=== PATIENT | female | born 1950 | race Caucasian/White ===

== ENCOUNTER → 2017-06-18 | Outpatient (CLI) | payer MEDICARE, OTHER ==
[~2017-06-18] MED LIST: ACYC200C66 PO; L-LY500T4 PO; LEVO75TA3 PO; LOSA100T PO; METR0.7537 TOPICAL; ROSU10 PO; VITA2000 PO
[2017-06-18 10:08] LABS: AUTOMATED NEUTROPHIL # 3.5 TH/MM3 (1.8-7.7); BASOPHIL % 0.5 % (0.0-2.0); EOSINOPHIL # 0.1 TH/MM3 (0-0.4); EOSINOPHIL % 1.4 % (0.0-4.0); HEMATOCRIT 39.1 % (35.0-46.0); HEMO FLAGS DIFF FINAL; LYMPH % 27.1 % (9.0-44.0); LYMPHOCYTE # 1.5 TH/MM3 (1.0-4.8); MEAN CELL VOLUME 83.7 FL (80.0-100.0); MEAN CORPUSCULAR HEMOGLOBIN 28.4 PG (27.0-34.0); MONO % 7.3 % (0.0-8.0); NEUT % 63.7 % (16.0-70.0); PLATELET COUNT 289 TH/MM3 (150-450); RED BLOOD COUNT 4.67 MIL/MM3 (4.00-5.30); WHITE BLOOD COUNT 5.5 TH/MM3 (4.0-11.0)
[2017-06-18 10:18] LABS: BLOOD, URINE NEG (NEG); COMMENT (UR) CULT NOT INDICATED; CULTURE IF INDICATED CULT NOT INDICATED; GLUCOSE,URINE NEG (NEG); KETONE, URINE NEG (NEG); NITRITE,URINE NEG (NEG); SQUAMOUS EPITHELIAL CELL URINE <1 /hpf (0-5); URINE COLOR STRAW (YELLW/STRAW)
[2017-06-18 10:20] LABS: APTT (PATIENT) 27.9 SEC (24.3-30.1); PROTHROMBIN TIME - PATIENT 10.8 SEC (9.8-11.6)
[2017-06-18 10:33] LABS: ANION GAP 7 MEQ/L (5-15); AST (GOT) 22 U/L (15-37); BICARBONATE 29.7 MEQ/L (21.0-32.0); BLOOD UREA NITROGEN 14 MG/DL (7-18); CHLORIDE 102 MEQ/L (98-107); GLOMERULAR FILTRATION RATE 63 ML/MIN (>89); GLUCOSE,FASTING 97 MG/DL (74-99); POTASSIUM 3.5 MEQ/L (3.5-5.1); SODIUM (NA) 139 MEQ/L (136-145)
[2017-06-18 10:34] LABS: WESTERGREN SEDIMENTATION RATE 16 mm/hr (0-30)
[2017-06-18 10:35] LABS: ALT (GPT) 34 U/L (10-53)
[2017-06-18 10:37] LABS: ALKALINE PHOSPHATASE 82 U/L (45-117); TOTAL BILIRUBIN ADULT 0.6 MG/DL (0.2-1.0)
--- NOTE | 2017-06-18 11:32 | EKG ---
Date Performed: 06/18/2017 Time Performed: 09:41:07 PTAGE: 66 years EKG: Sinus rhythm NORMAL ECG NO PREVIOUS TRACING DOCTOR: Prosper Gastelum Interpretating Date/Time 06/18/2017 11:32:28
--- NOTE | 2017-06-18 11:42 | RADRPT ---
EXAM DATE/TIME: 06/18/2017 11:34 [facility] COMPARISON: No previous studies available for comparison. INDICATIONS : Evaluate for pneumonia, pneumothorax, or communicable disease. Pre op for hip surgery on July. MEDICAL HISTORY : Hypertension. SURGICAL HISTORY : None. ENCOUNTER: Initial ACUITY: 1 day PAIN SCORE: 0/10 LOCATION: Bilateral chest FINDINGS: PA and lateral views of the chest demonstrate the lungs to be symmetrically aerated without evidence of mass, infiltrate or effusion. The cardiomediastinal contours are unremarkable. Mild degenerative changes thoracic spine.. CONCLUSION: No acute disease. Nathan Glasgow MD FACR on June 18, 2017 at 11:40 Board Certified Radiologist. This report was verified electronically.
== END ==
LOC: CPRE 09:13
PROVIDERS: ATTEND Orthopaedic Surgery
DX: Z01.812 Encounter for preprocedural laboratory examination (principal); Z01.810 Encounter for preprocedural cardiovascular examination; Z01.811 Encounter for preprocedural respiratory examination; M16.12 Unilateral primary osteoarthritis, left hip; M79.609 Pain in unspecified limb; M25.50 Pain in unspecified joint; Z96.60 Presence of unspecified orthopedic joint implant
CPT/HCPCS: 36415; 71020; 80053; 81001; 85025; 85610; 85652; 85730; 93005

== ENCOUNTER 2017-07-04 05:38 | Inpatient (IN) | payer MEDICARE, OTHER ==
[~2017-07-04] VITALS: Ht 160 cm; Wt 55.2 kg
[2017-07-04] MEDS ORDERED: POVIDONE IODINE 5% (ANTISEPSIS KIT) 4 APPLICATIONS EACH NARE PRN (06:15)
[2017-07-04] MEDS ORDERED: METOPROLOL TARTRATE 25 MG TAB PO PRN (06:15)
[2017-07-04] MEDS ORDERED: CHLORHEXIDINE GLUCONATE 2 % 1 PACK (2 CLOTHS) TOPICAL PRN (06:15)
[2017-07-04] MEDS ORDERED: LACTATED RINGER'S 1000 ML IV PRN (06:15)
[2017-07-04] MEDS ORDERED: POVIDONE IODINE 7.5% SCRUB 118 ML BOTTLE TOPICAL SCH (06:15)
[2017-07-04] MEDS ORDERED: SODIUM CHLORID 0.9% 500 ML IV PRN (06:15)
[2017-07-04] MEDS ORDERED: VANCOMYCIN 1000 MG/NS 250 ML (for <70 kg) IV SCH ×2 (06:15)
[2017-07-04] MEDS ORDERED: DEXAMETHASONE SOD PHOS 20 MG/5 ML VIAL ONE (06:58)
[2017-07-04] MEDS ORDERED: diphenhydrAMINE HCL 50 MG/ML VIAL ONE (06:58)
--- NOTE | 2017-07-04 07:06 | HHI.DCPOC ---
Discharge Care Plan Diagnosis: (1) Osteoarthritis of left hip (2) Status post total hip replacement, left Your Health Problems Are: Difficulty with ADL Goals to Promote Your Health * To prevent worsening of your condition and complications * To maintain your health at the optimal level Directions to Meet Your Goals Take your medications as prescribed Follow your dietary instruction Follow activity as directed Keep your appointments as scheduled Take your immunizations and boosters as scheduled If your symptoms worsen call your PCP, if no PCP go to Urgent Care Center or Emergency Room Smoking is Dangerous to Your Health. Avoid second hand smoke Call the 24-hour hour crisis hotline for domestic abuse at Rommel Celaya Jul 04, 2017 07:06
--- NOTE | 2017-07-04 07:07 | HHI.FF ---
Face to Face Verification Diagnosis: (1) Osteoarthritis of left hip (2) Status post total hip replacement, left Physical Therapy Gait training, Transfer training, bed to chair Hip: Total hip Left LE Weight Bearing: WB as tolerated Left LE Range of Motion: Active ROM Nursing Nursing: Jcarlos poon Dressing Changes: Do not change dressing Additional Instructions first dressing change in office I have seen patient Nisha Munson on 07/04/17. My clinical findings support the need for the requested home health care services because: Limited ability to care for self High risk of falls I certify that my clinical findings support that this patient is homebound because: Post-op weakness Unsteady gait/balance Rommel Celaya Jul 04, 2017 07:07
[2017-07-04] MEDS ORDERED: COMMODE 3-IN-11 MIS (07:08)
[2017-07-04] MEDS ORDERED: WALKER WHEELS/F1 MIS (07:08)
[2017-07-04] MEDS ORDERED: GENTAMICIN SULFATE 80 MG/2 ML VIAL ONE (07:18)
[2017-07-04] MEDS: ceFAZolin 2 GM PREMIX 50 ML IV SCH ×2 (07:30→08:20)
[2017-07-04] MEDS ORDERED: APREPITANT 40 MG CAP ONE (07:42)
[2017-07-04] MEDS ORDERED: FAMOTIDINE 20 MG/2 ML VIAL ONE (07:46)
[2017-07-04] MEDS: TRANEXAMIC ACID IV SCH ×2 (08:17→13:53)
[2017-07-04] MEDS: SODIUM CHLORIDE 0.9% IV SCH ×2 (08:17→13:53)
[2017-07-04] MEDS ORDERED: EXPAREL PERI-ARTICULAR INJECTION (TOTAL VOL. 60 ML) P-ARTICULR SCH ×2 (08:30)
--- NOTE | 2017-07-04 09:56 | PD.OP ---
cc: Wilberto Rodriguez MD Operative Report Date of Surgery: Jul 04, 2017 Preoperative Diagnosis: Left hip severe osteoarthritis Postoperative Diagnosis: Same Procedure: Left total hip arthroplasty Anesthesia: Gen. Surgeon: Wilberto Rodriguez Passenger Interline Clerk(s): KYREE Bueno The surgical procedure was assisted by my Advanced Registered Nurse Practitioner. My ROAD ADVISOR presence was necessary throughout this case for the manipulation and positioning of the surgical extremity. My ROAD ADVISOR was assisting me throughout the duration of this procedure. The skill set of an Advance Registered Nurse Practitioner was medically necessary to complete this procedure. During the surgical case, the surgical territory manager was working at the back table and the Advance Registered Nurse Practitioner was directly assisting me. Operation and Findings: IMPLANT DESCRIPTION: 1. [place] Gription Cup, acetabular size 48. 2. [place] AltrX polyethylene, neutral. 4. [place] femoral stem size 10, no collar, high offset. 5. Femoral head/neck metal, 32, +1. ESTIMATED BLOOD LOSS: 250 cc. JUSTIFICATION FOR PROCEDURE: The patient has end-stage osteoarthritis to the hip. There is an attached conservative measures pathway form in the chart that describes the nonoperative measures that were undertaken prior to consideration of surgical management. The patient understood the risks and benefits of surgical management. See my office notes for further details. PROCEDURE: The patient was brought back to the operative theatre. Adequate anesthesia was obtained. The patient received intravenous vancomycin and Ancef. The patient was carefully placed on the operative table. The lower extremity was prepped and draped in the usual sterile fashion. Fluoroscopic images were obtained. We made a standard anterior incision over the hip. We dissected through the TFL fascia, exposing the anterior capsule. Arthrotomy was performed in a T-shaped fashion. The capsule was tagged with a #2 FiberWire. End-stage arthritis was identified. Osteotomy was performed through the femoral neck exposing the acetabulum. Remnants of the labrum were resected and osteophytes were removed. We sequentially reamed the acetabulum. We trialed the hip and placed the final cup into position. This was done under fluoroscopic guidance to obtain the appropriate inclination and anteversion. A manhole cover was placed into the acetabular component. We then placed the final polyethylene into position and confirmed that it was well seated. Capsular attachments on the calcar and the inner aspect of the greater trochanter were resected. On the proximal aspect of the femur we used a rongeur , box osteotome, canal finder, sequential broaches and lateralizing rasp. We calcar planed the proximal femur. Then thoroughly irrigated the wound. We trialed the hip with the appropriate size stem. We placed the final stem in to position and trialed again. The hip was stable while it was externally rotated 70 degrees when the leg was lowered to the floor. The final head was applied, and final fluoroscopic images were obtained. The wound was thoroughly irrigated again. Interarticular injection of liposomal bupivacaine was given. The capsule was closed with #2 FiberWire and #1 Vicryl. The deep fascia was closed with a #2 Stratafix, followed by 2-0 Vicryl in the skin and Dermabond dressing. Postop plan is to weight-bear as tolerated. DVT prophylaxis will be performed with Polina, MAXINE lutz, early mobilization, and Lovenox followed by aspirin. Wilberto Rodriguez MD Jul 04, 2017 09:56
[2017-07-04] MEDS ORDERED: NORC5TAB PO (09:57)
[2017-07-04] MEDS ORDERED: ASPI-146 PO (09:57)
[2017-07-04] MEDS ORDERED: ENOX40IN SQ (09:57)
[2017-07-04] MEDS ORDERED: SODIUM CHLORIDE 0.9% FLUSH 5 ML FLUSH IVF PRN (10:00)
[2017-07-04] MEDS ORDERED: ACETAMINOPHEN/HYDROcodone 325 MG/5 MG TAB PO PRN (10:00)
[2017-07-04] MEDS ORDERED: ALUMINUM/MAGNESIUM/SIMETH 30 ML CUP PO PRN (10:00)
[2017-07-04] MEDS ORDERED: ZOLPIDEM TARTRATE 5 MG TAB PO PRN (10:00)
[2017-07-04] MEDS ORDERED: Post-op Orders (for Pharmacy) MISC XX ONE (10:00)
[2017-07-04] MEDS ORDERED: ONDANSETRON HCL 4 MG/2 ML VIAL IVP PRN (10:00)
[2017-07-04] MEDS ORDERED: MAGNESIUM HYDROXIDE SUSP 30 ML CUP PO PRN (10:00)
[2017-07-04] MEDS ORDERED: PATIENT OWN MEDICATION TOPICAL PRN (10:00)
[2017-07-04] MEDS ORDERED: NALOXONE HCL 0.4 MG/ML AMP IV PUSH PRN (10:00)
[2017-07-04] MEDS ORDERED: diphenhydrAMINE HCL 50 MG/ML VIAL IV PUSH PRN (10:00)
[2017-07-04] MEDS ORDERED: BISACODYL 10 MG SUPP RECTAL PRN (10:00)
[2017-07-04] MEDS ORDERED: MORPHINE SULFATE 4 MG/ML INJ IV PUSH PRN (10:00)
--- NOTE | 2017-07-04 10:07 | RADRPT ---
EXAM DATE/TIME: 07/04/2017 08:37 [facility] COMPARISON: No previous studies available for comparison. INDICATIONS : Left anterior hip replacement done in operating room. MEDICAL HISTORY : None. SURGICAL HISTORY : None. ENCOUNTER: Initial ACUITY: 1 day PAIN SCORE: Non-responsive. LOCATION: Left hip. FINDINGS: A two view examination of the left hip was performed. Left total hip arthroplasty in good position. CONCLUSION: Left total hip arthroplasty in good position. Kana Jean Baptiste MD on July 04, 2017 at 10:05 Board Certified Radiologist. This report was verified electronically.
[2017-07-04] MEDS ORDERED: *MEPERIDINE 25 MG INJ VIAL PERIprocedural Use ONLY ONE (10:44)
[2017-07-04] MEDS: SODIUM CHLOR 0.9% 1000 ML INJ 1,000 ML IV SCH ×2 (11:00→20:55)
--- NOTE | 2017-07-04 11:22 | RADRPT ---
EXAM DATE/TIME: 07/04/2017 10:54 [facility] COMPARISON: No previous studies available for comparison. INDICATIONS : Post op left hip surgery. MEDICAL HISTORY : Unobtainable. SURGICAL HISTORY : Unobtainable. ENCOUNTER: Initial ACUITY: 1 day PAIN SCORE: Non-responsive. LOCATION: Left hip. FINDINGS: Examination of the left hip was performed with AP Pelvis. The patient had a total hip arthroplasty in good position CONCLUSION: Total hip arthroplasty in good position. Kana Jean Baptiste MD on July 04, 2017 at 11:20 Board Certified Radiologist. This report was verified electronically.
[2017-07-04] MEDS ORDERED: PHENYLEPH/NS 1000 MCG/10 ML SYR IV ONE ×2 (12:00)
[2017-07-04] MEDS ORDERED: LIDOCAINE HCL 1% PF 5 ML SYRINGE OTHER ONE ×2 (12:00)
[2017-07-04] MEDS ORDERED: ROCURONIUM INJ 50 MG/5 ML SYRINGE IV PUSH ONE ×2 (12:00)
[2017-07-04] MEDS ORDERED: LACTATED RINGER'S 1000 ML INJ 1,000 ML IV ONE (12:00)
[2017-07-04] MEDS ORDERED: MIDAZOLAM HCL 2 MG/2 ML VIAL IV ONE ×2 (12:00)
[2017-07-04] MEDS ORDERED: TRANEXAMIC ACID IV SCH (12:00)
[2017-07-04] MEDS ORDERED: ESMOLOL HCL 100 MG/10 ML VIAL IV ONE (12:00)
[2017-07-04] MEDS ORDERED: NEOSTIGMINE 3 MG/3 ML SYR IV ONE ×2 (12:00)
[2017-07-04] MEDS ORDERED: hydrALAZINE HCL 20 MG/ML VIAL IV ONE (12:00)
[2017-07-04] MEDS ORDERED: ePHEDrine/NS 25 MG/5 ML SYR IV ONE ×2 (12:00)
[2017-07-04] MEDS ORDERED: PHENYLEPHRINE HCL 10 MG/ML VIAL IV ONE (12:00)
[2017-07-04] MEDS ORDERED: SODIUM CHLORIDE 0.9% IV SCH (12:00)
[2017-07-04] MEDS ORDERED: GLYCOPYRROLATE 1 MG/5 ML SYRINGE IV PUSH ONE (12:00)
[2017-07-04] MEDS ORDERED: SODIUM CHLORIDE 0.9% 20 ML VIAL IV ONE (12:00)
[2017-07-04] MEDS ORDERED: MORPHINE SULFATE 4 MG/ML INJ IV ONE (12:00)
[2017-07-04] MEDS ORDERED: ONDANSETRON HCL 4 MG/2 ML VIAL IV ONE ×2 (12:00)
[2017-07-04] MEDS ORDERED: PROPOFOL 200 MG/20 ML AMP IV ONE ×2 (12:00)
[2017-07-04] MEDS ORDERED: DEXAMETHASONE SOD PHOS 20 MG/5 ML VIAL IV PRN (13:15)
[2017-07-04] MEDS ORDERED: diphenhydrAMINE HCL 50 MG/ML VIAL IV ONE (13:15)
[2017-07-04] MEDS ORDERED: DO NOT ADM ANY ANTICOAGULANT DRUGS PRN (13:15)
--- NOTE | 2017-07-04 15:04 | PD.CONS ---
[facility] Request[facility] By Dr. Rodriguez Reason for Consult Medical management Primary Care Physician No Primary Care Physician Diagnoses: (1) Hypertension (2) Hyperlipidemia (3) Osteoarthritis of left hip (4) Status post total hip replacement, left History of Present Illness 66-year-old female with a medical history significant for hypertension, hyperlipidemia, hypothyroidism and osteoarthritis admitted to the hospital for left hip arthroplasty. Patient reports ongoing issues with left hip pain secondary to osteoarthritis for years. It has gotten to the point where she was having difficulty walking. Therefore she was admitted to the hospital for left hip arthroplasty. She reports her blood pressure has been well controlled on her current medications. She is seen postoperatively. She reports her pain is controlled. No other issues. Review of Systems Constitutional: DENIES: Fever, Chills Musculoskeletal: COMPLAINS OF: Joint pain Except as stated in HPI: all other systems reviewed are Neg Past Family Social History Allergies: Coded Allergies: prednisone (Verified Allergy, Severe, RASH, 06/18/17) Past Medical History Hypertension Hyperlipidemia Osteoarthritis Hypothyroidism Past Surgical History Hysterectomy Left hip arthroplasty Reported Medications Reported Meds & Active Scripts Active Enoxaparin Inj (Enoxaparin Sodium) 40 Mg/0.4 Ml Syr 40 Mg SQ DAILY Start Aspirin after Lovenox is completed. Ecotrin Regular Strength (Aspirin) 325 Mg Tabdr 325 Mg PO DAILY Start Aspirin after Lovenox is completed. [place] (Hydrocodone-Acetaminophen) 5 Mg-325 Mg Tab 1-2 Tab PO Q4H PRN Walker with Front Wheels (Device) 1 Mis Mis Ea .ROUTE DIRECTED Commode 3-in-1 (Device) 1 Mis Mis Ea .ROUTE DIRECTED Reported Vitamin D3 (Cholecalciferol) 2,000 Unit Cap 2,000 Units PO DAILY l-Lysine (Lysine) 500 Mg Tab 1 Tab PO DAILY Metronidazole Topical 0.75 % Gel 1 Applic TOPICAL BID PRN Acyclovir 200 Mg Cap 200 Mg PO 5 TIMES A DAY PRN Losartan (Losartan Potassium) 100 Mg Tab 100 Mg PO DAILY Levothyroxine (Levothyroxine Sodium) 75 Mcg Tab 75 Mcg PO DAILY Crestor (Rosuvastatin Calcium) 10 Mg Tab 10 Mg PO DAILY Family History Reviewed and is noncontributory. Social History Patient does not use tobacco or alcohol Physical Exam Vital Signs Vital Signs Date Time Temp Pulse Resp B/P (MAP) Pulse Ox O2 Delivery O2 Flow Rate FiO2 07/04/17 11:15 77 20 98/52 (67) 98 Nasal Cannula 2 07/04/17 11:00 74 20 98/55 (69) 98 Nasal Cannula 2 07/04/17 10:45 76 20 107/55 (72) 98 Nasal Cannula 2 07/04/17 10:30 86 20 107/58 (74) 98 Nasal Cannula 2 07/04/17 10:12 97.8 87 20 113/55 (74) 99 Nasal Cannula 2 07/04/17 06:30 98.0 68 20 168/76 (106) 97 Physical Exam GENERAL: This is a well-nourished, well-developed patient, in no apparent distress. SKIN: No rashes, ecchymoses or lesions. Cool and dry. HEAD: Atraumatic. Normocephalic. No temporal or scalp tenderness. EYES: Pupils equal round and reactive. Extraocular motions intact. No scleral icterus. No injection or drainage. ENT: Nose without bleeding, purulent drainage or septal hematoma. Throat without erythema, tonsillar hypertrophy or exudate. Uvula midline. Airway patent. NECK: Trachea midline. No JVD or lymphadenopathy. Supple, nontender, no meningeal signs. CARDIOVASCULAR: Regular rate and rhythm without murmurs, gallops, or rubs. RESPIRATORY: Clear to auscultation. Breath sounds equal bilaterally. No wheezes , rales, or rhonchi. GASTROINTESTINAL: Abdomen soft, non-tender, nondistended. No hepato-splenomegaly , or palpable masses. No guarding. MUSCULOSKELETAL: Left hip postop dressing is intact. Neurovascularly intact distally. NEUROLOGICAL: Awake and alert. Cranial nerves II through XII intact. Motor and sensory grossly within normal limits. Five out of 5 muscle strength in all muscle groups. Normal speech. Imaging Last Impressions Hip and Pelvis X-Ray 07/04/17 0951 Signed Impressions: Service Date/Time: Tuesday, July 04, 2017 10:54 - CONCLUSION: Total hip arthroplasty in good position. Kana Jean Baptiste MD Hip X-Ray 07/04/17 0000 Signed Impressions: Service Date/Time: Tuesday, July 04, 2017 08:37 - CONCLUSION: Left total hip arthroplasty in good position. Kana Jean Baptiste MD Assessment and Plan Problem List: (1) Osteoarthritis of left hip ICD Code: M16.12 - Unilateral primary osteoarthritis, left hip (2) Status post total hip replacement, left ICD Code: Z96.642 - Presence of left artificial hip joint Plan: Continue routine postoperative care per orthopedic surgery. Pain control PT (3) Hypertension ICD Code: I10 - Essential (primary) hypertension Plan: Controlled. Continue home dose antihypertensives. (4) Hyperlipidemia ICD Code: E78.5 - Hyperlipidemia, unspecified Plan: Continue statin Problem Qualifiers (1) Osteoarthritis of left hip: Qualified Codes: M16.12 - Unilateral primary osteoarthritis, left hip Sourav Robbins MD Jul 04, 2017 15:04
[2017-07-04 15:54] VITALS: BP 120/63; PULSE 84; RESP 19; TEMP 95.5; O2SAT 95
--- NOTE | 2017-07-04 17:11 | PD.ORT.PN ---
Objective Vitals Vital Signs Date Time Temp Pulse Resp B/P (MAP) Pulse Ox O2 Delivery O2 Flow Rate FiO2 07/04/17 15:54 95.5 84 19 120/63 (82) 95 07/04/17 11:15 77 20 98/52 (67) 98 Nasal Cannula 2 07/04/17 11:00 74 20 98/55 (69) 98 Nasal Cannula 2 07/04/17 10:45 76 20 107/55 (72) 98 Nasal Cannula 2 07/04/17 10:30 86 20 107/58 (74) 98 Nasal Cannula 2 07/04/17 10:12 97.8 87 20 113/55 (74) 99 Nasal Cannula 2 07/04/17 06:30 98.0 68 20 168/76 (106) 97 I/O 07/03/17 07/03/17 07/03/17 07/04/17 07/04/17 07/04/17 07:00 15:00 23:00 07:00 15:00 23:00 Intake Total 1200 ml Output Total 3300 ml Balance -2100 ml Intake IV Total 1200 ml Output Estimated Blood Loss 300 ml Other 3000 ml Imaging Last 24 hours Impressions Hip and Pelvis X-Ray 07/04/17 0951 Signed Impressions: Service Date/Time: Tuesday, July 04, 2017 10:54 - CONCLUSION: Total hip arthroplasty in good position. Kana Jean Baptiste MD Hip X-Ray 07/04/17 0000 Signed Impressions: Service Date/Time: Tuesday, July 04, 2017 08:37 - CONCLUSION: Left total hip arthroplasty in good position. Kana Jean Baptiste MD Assessment & Plan Assessment and Plan POD #0: Left PRABHAKAR 1. WBAT LLE 2. Lovenox followed by ASA for DVT prophylaxis 3. Ice to the left hip PRN 4. No dressing changes. First dressing change will be in the office. 5. Plan is for discharge home with home health on 6. Patient will f/u with Dr. Rodriguez or KYREE Rosas as previously scheduled. Rommel Celaya Jul 04, 2017 17:11
[2017-07-04] MEDS ORDERED: ACYCLOVIR 200 MG CAP PO PRN (18:00)
[2017-07-04 19:00] VITALS: BP 117/56; PULSE 87; RESP 17; TEMP 97.4; O2SAT 98
[2017-07-04] MEDS: SODIUM CHLORIDE 0.9% FLUSH 5 ML FLUSH IVF SCH (21:00)
[2017-07-04] MEDS ORDERED: ATORVASTATIN 20 MG TAB PO SCH (21:00)
[2017-07-05 00:02] VITALS: BP 103/51; PULSE 84; RESP 18; TEMP 98.4; O2SAT 96
[2017-07-05] MEDS: ACETAMINOPHEN/HYDROcodone 325 MG/5 MG TAB PO PRN ×2 (02:50→08:51)
[2017-07-05 04:13] VITALS: BP 106/53; PULSE 89; RESP 17; TEMP 98; O2SAT 95
[2017-07-05] MEDS: SODIUM CHLOR 0.9% 1000 ML INJ 1,000 ML IV SCH (05:51)
[2017-07-05] MEDS ORDERED: LEVOTHYROXINE SODIUM 75 MCG TAB PO SCH (06:00)
[2017-07-05 06:13] LABS: HEMATOCRIT 25.5 % (35.0-46.0); MEAN CELL VOLUME 84.7 FL (80.0-100.0); MEAN CORPUSCULAR HEMOGLOBIN 29.2 PG (27.0-34.0); MEAN CORPUSCULAR HGB CONC 34.5 % (32.0-36.0); PLATELET COUNT 185 TH/MM3 (150-450); RED BLOOD COUNT 3.02 MIL/MM3 (4.00-5.30); RED CELL DISTRIBUTION WIDTH 13.3 % (11.6-17.2); REVIEW FLAG FINAL; WHITE BLOOD COUNT 10.7 TH/MM3 (4.0-11.0)
[2017-07-05] MEDS ORDERED: DEXAMETHASONE SOD PHOS 20 MG/5 ML VIAL IV ONE (07:45)
[2017-07-05 08:00] VITALS: BP 99/50; PULSE 89; RESP 17; TEMP 99; O2SAT 96
[2017-07-05] MEDS: SODIUM CHLORIDE 0.9% FLUSH 5 ML FLUSH IVF SCH (08:49)
[2017-07-05] MEDS ORDERED: ENOXAPARIN SODIUM 40 MG/0.4 ML SYRINGE SQ SCH (09:00)
[2017-07-05] MEDS ORDERED: LOSARTAN 50 MG TAB PO SCH (09:00)
[2017-07-05 09:40] VITALS: O2SAT 93
--- NOTE | 2017-07-05 09:42 | HHI.PR ---
Subjective Remarks Patient reports she is feeling great. Anxious to go home. Objective Vitals Vital Signs Date Time Temp Pulse Resp B/P (MAP) Pulse Ox O2 Delivery O2 Flow Rate FiO2 07/05/17 04:13 98.0 89 17 106/53 (70) 95 07/05/17 00:02 98.4 84 18 103/51 (68) 96 07/04/17 19:00 97.4 87 17 117/56 (76) 98 07/04/17 15:54 95.5 84 19 120/63 (82) 95 07/04/17 11:15 77 20 98/52 (67) 98 Nasal Cannula 2 07/04/17 11:00 74 20 98/55 (69) 98 Nasal Cannula 2 07/04/17 10:45 76 20 107/55 (72) 98 Nasal Cannula 2 07/04/17 10:30 86 20 107/58 (74) 98 Nasal Cannula 2 07/04/17 10:12 97.8 87 20 113/55 (74) 99 Nasal Cannula 2 I/O 07/04/17 07/04/17 07/04/17 07/05/17 07/05/17 07/05/17 07:00 15:00 23:00 07:00 15:00 23:00 Intake Total 1200 ml 460 ml 360 ml Output Total 3300 ml Balance -2100 ml 460 ml 360 ml Intake Oral 360 ml 360 ml IV Total 1200 ml 100 ml Output Estimated Blood Loss 300 ml Other 3000 ml # Voids 1 2 # Bowel Movements 0 0 Result Diagram: 07/05/17 0535 Objective Remarks GENERAL: This is a well-nourished, well-developed patient, in no apparent distress. CARDIOVASCULAR: Normal rate and regular rhythm without murmurs, gallops, or rubs. RESPIRATORY: Good respiratory efforts. Breath sounds equal and clear to auscultation bilaterally. GASTROINTESTINAL: Abdomen soft, non-tender, non-distended. Normal active bowel sounds MUSCULOSKELETAL: Left hip postop dressing is intact. Neurovascularly intact distally. NEURO: Alert & Oriented x4 to person, place, time, situation. Moves all ext x4 PSYCH: Appropriate mood and affect. A/P Problem List: (1) Osteoarthritis of left hip ICD Code: M16.12 - Unilateral primary osteoarthritis, left hip (2) Status post total hip replacement, left ICD Code: Z96.642 - Presence of left artificial hip joint Plan: Continue routine postoperative care per orthopedic surgery. Pain control PT Plan for discharge home today with home health (3) Hypertension ICD Code: I10 - Essential (primary) hypertension Plan: Controlled. Continue home dose antihypertensives. (4) Hyperlipidemia ICD Code: E78.5 - Hyperlipidemia, unspecified Plan: Continue statin Discharge Planning Cleared for discharge home today with home health. Problem Qualifiers (1) Osteoarthritis of left hip: Qualified Codes: M16.12 - Unilateral primary osteoarthritis, left hip Sourav Robbins MD Jul 05, 2017 09:42
--- NOTE | 2017-07-05 10:00 | PD.ORT.PN ---
Subjective Subjective Remarks no CP/SOB. no issues. Participating in PT Objective Vitals Vital Signs Date Time Temp Pulse Resp B/P (MAP) Pulse Ox O2 Delivery O2 Flow Rate FiO2 07/05/17 04:13 98.0 89 17 106/53 (70) 95 07/05/17 00:02 98.4 84 18 103/51 (68) 96 07/04/17 19:00 97.4 87 17 117/56 (76) 98 07/04/17 15:54 95.5 84 19 120/63 (82) 95 07/04/17 11:15 77 20 98/52 (67) 98 Nasal Cannula 2 07/04/17 11:00 74 20 98/55 (69) 98 Nasal Cannula 2 07/04/17 10:45 76 20 107/55 (72) 98 Nasal Cannula 2 07/04/17 10:30 86 20 107/58 (74) 98 Nasal Cannula 2 07/04/17 10:12 97.8 87 20 113/55 (74) 99 Nasal Cannula 2 I/O 07/04/17 07/04/17 07/04/17 07/05/17 07/05/17 07/05/17 07:00 15:00 23:00 07:00 15:00 23:00 Intake Total 1200 ml 460 ml 360 ml Output Total 3300 ml Balance -2100 ml 460 ml 360 ml Intake Oral 360 ml 360 ml IV Total 1200 ml 100 ml Output Estimated Blood Loss 300 ml Other 3000 ml # Voids 1 2 # Bowel Movements 0 0 Result Diagram: 07/05/17 0535 Imaging Last 24 hours Impressions Hip and Pelvis X-Ray 07/04/17 0951 Signed Impressions: Service Date/Time: Tuesday, July 04, 2017 10:54 - CONCLUSION: Total hip arthroplasty in good position. Kana Jean Baptiste MD Hip X-Ray 07/04/17 0000 Signed Impressions: Service Date/Time: Tuesday, July 04, 2017 08:37 - CONCLUSION: Left total hip arthroplasty in good position. Kana Jean Baptiste MD Objective Remarks aaox3. nad LLE: dressing CDI, grossly nvi. SILT distally. neg homans Assessment & Plan Assessment and Plan POD #1: Left PRABHAKAR 1. WBAT LLE 2. Lovenox followed by ASA for DVT prophylaxis 3. Ice to the left hip PRN 4. No dressing changes. First dressing change will be in the office. 5. Plan is for discharge home with home health on today 6. Patient will f/u with Dr. Rodriguez or KYREE Rosas as previously scheduled. Luis Callahan Jr., MD Jul 05, 2017 10:00
[2017-07-05] MEDS ORDERED: DOCUSATE SODIUM 100 MG CAP PO SCH (21:00)
[2017-07-05] MEDS ORDERED: MULTIVITAMINS/MINERALS THERAPEUTIC TAB PO SCH (21:00)
--- NOTE | 2017-07-08 15:16 | HHI.DS ---
Discharge Summary Admission Date Jul 04, 2017 at 05:38 Discharge Date: Jul 05, 2017 Admitting Diagnosis OA left hip Status post total hip replacement, left Diagnosis: (1) Osteoarthritis of left hip Diagnosis: Principal ICD Codes: M16.12 - Unilateral primary osteoarthritis, left hip (2) Status post total hip replacement, left Diagnosis: Principal ICD Codes: Z96.642 - Presence of left artificial hip joint Brief History This is a 66 year old female patient with severe OA of the left hip CBC/BMP: 07/05/17 0535 PE at Discharge aaox3. nad LLE: dressing CDI, grossly nvi. SILT distally. [facility] Hospital Course The patient was admitted to the hospital for severe OA of the left hip to have a left PRABHAKAR. The patient's surgery went well without complication. The patient is WBAT on the left LE. The patient was placed on Lovenox followed by ASA for DVT prophylaxis. The patient is on a regular diet. The patient was discharged home with home health and will f/u in the office with Dr. Rodriguez or KYREE Rosas as previously scheduled. Pt Condition on Discharge: Stable Discharge Disposition: Disch w/ Home Health Serv Discharge Instructions Diet Instructions: As Tolerated, No Restrictions Activities You Can Perform: Weight Bearing as Aviva Activities to Avoid: Strenuous Activity Follow up Referrals: Orthopedics with Wilberto Rodriguez MD New Medications: Aspirin DR (Ecotrin Regular Strength) 325 Mg Tabdr 325 MG PO DAILY for Prevent Blood Clot, #30 TAB 0 Refills Start Aspirin after Lovenox is completed. Commode 3-in-1 (Commode 3-in-1) 1 Mis Mis EA .ROUTE DIRECTED, #1 0 Refills Enoxaparin Inj (Enoxaparin Inj) 40 Mg/0.4 Ml Syr 40 MG SQ DAILY for Blood Clot Prevention, #10 SYRINGE 0 Refills Start Aspirin after Lovenox is completed. Hydrocodone-Acetaminophen ([place]) 5 Mg-325 Mg Tab 1-2 TAB PO Q4H PRN for PAIN, #60 TAB 0 Refills Walker with Front Wheels (Walker with Front Wheels) 1 Mis Mis EA .ROUTE DIRECTED, #1 0 Refills Continued Medications: Acyclovir (Acyclovir) 200 Mg Cap 200 MG PO 5 TIMES A DAY PRN for COLD SORES, CAP 0 Refills Cholecalciferol (Vitamin D3) 2,000 Unit Cap 2000 UNITS PO DAILY for Nutritional Supplement, #1 BOTTLE 0 Refills Levothyroxine (Levothyroxine) 75 Mcg Tab 75 MCG PO DAILY for Thyroid, #30 TAB 0 Refills Losartan (Losartan) 100 Mg Tab 100 MG PO DAILY for Blood Pressure Management, #30 TAB 0 Refills Lysine (l-Lysine) 500 Mg Tab 1 TAB PO DAILY Metronidazole Topical (Metronidazole Topical) 0.75 % Gel 1 APPLIC TOPICAL BID PRN for RASH, #1 TUBE 0 Refills Rosuvastatin (Crestor) 10 Mg Tab 10 MG PO DAILY for Cholesterol Management, #30 TAB 0 Refills Rommel Celaya Jul 08, 2017 15:16
== END 2017-07-05 10:58 | disposition home health service (06) | DRG 470 ==
LOC: HSDI 05:38 → EDUNIT# 08:30 → N06B 13:16
PROVIDERS: ADMIT Orthopaedic Surgery; ATTEND Orthopaedic Surgery
PROC: 0SRB02Z Replacement of Left Hip Joint with Metal on Polyethylene Synthetic Substitute, Open Approach (ICD-10-PCS; principal; 2017-07-04 07:55)
DX: M16.12 Unilateral primary osteoarthritis, left hip (principal); I10 Essential (primary) hypertension; M25.752 Osteophyte, left hip; E78.5 Hyperlipidemia, unspecified; E03.9 Hypothyroidism, unspecified
CPT/HCPCS: 73502; 76000; 85027; 86850; 86900; 86901; 94150; C1776; C9290; J0360; J0690; J1100; J1200; J1580; J1650; J2175; J2250; J2270; J2370; J2405; J2710; J3010; J3370; J7030; J7050; J7120; J8501

== ENCOUNTER 2017-07-08 16:51 | Emergency (ER) | payer MEDICARE, OTHER ==
[~2017-07-08] VITALS: Ht 160 cm; Wt 55.0 kg
[~2017-07-08 16:51] MED LIST changes: +ASPI-146 PO; +COMMODE 3-IN-11 MIS; +ENOX40IN SQ; +NORC5TAB PO; +WALKER WHEELS/F1 MIS
[2017-07-08 16:53] VITALS: BP 206/98; PULSE 106; RESP 18; TEMP 98.6; O2SAT 100
[2017-07-08 17:28] VITALS: BP 189/87; PULSE 90; RESP 18; TEMP 98.4; O2SAT 100
[2017-07-08] MEDS ORDERED: SODIUM CHLORIDE 0.9% FLUSH 10 ML FLUSH IVF PRN (17:30)
[2017-07-08] MEDS ORDERED: PROCHLORPERAZINE INJ 10 MG/2 ML VIAL IVP ONE (17:30)
[2017-07-08] MEDS ORDERED: diphenhydrAMINE HCL 50 MG/ML VIAL IVP ONE (17:30)
--- NOTE | 2017-07-08 17:38 | PD ---
HPI . Headache Chief Complaint: Headache Time Seen by Provider: 17:18 Travel History International Travel<30 days: No Contact w/Intl Traveler<30days: No Traveled to known affect area: No History of Present Illness HPI This patient presents with chief complaint of a headache. Onset was 4 days ago. She states that she underwent left total hip replacement 4 days ago. She awakened in the recovery room with a headache. She states that her headache has been getting progressively worse. It is located on the vertex of her head and is throbbing in nature. Pain is rated 10/10. She has not noted any exacerbating factor. It has been unrelieved by Tylenol and Advil. It is associated with nausea but no blurred vision, no photophobia and no fever. She is on prophylactic Lovenox. PFSH Past Medical History Hx Anticoagulant Therapy: Yes Cancer: No Cardiovascular Problems: Yes Diabetes: No Endocrine: Yes Genitourinary: No Hepatitis: No Hiatal Hernia: No Immune Disorder: No Musculoskeletal: Yes (OA) Neurologic: No Psychiatric: No Reproductive: No Respiratory: No Thyroid Disease: Yes ?: Not Past Surgical History Abdominal Surgery: No AICD: No Body Medical Devices: TOOTH IMPLANT Cardiac Surgery: No Ear Surgery: No Endocrine Surgery: No Eye Surgery: No Genitourinary Surgery: No Gynecologic Surgery: Yes (HYSTERECTOMY) Hysterectomy: Yes Joint Replacement: No Oral Surgery: No Pacemaker: No Thoracic Surgery: No Social History Tobacco Use: No Substance Use: No Allergies-Medications (Allergen,Severity, Reaction): Coded Allergies: prednisone (Verified Allergy, Severe, RASH, 07/08/17) Reported Meds & Prescriptions Reported Meds & Active Scripts Active Enoxaparin Inj (Enoxaparin Sodium) 40 Mg/0.4 Ml Syr 40 Mg SQ DAILY Start Aspirin after Lovenox is completed. Ecotrin Regular Strength (Aspirin) 325 Mg Tabdr 325 Mg PO DAILY Start Aspirin after Lovenox is completed. Dalton (Hydrocodone-Acetaminophen) 5 Mg-325 Mg Tab 1-2 Tab PO Q4H PRN Reported Vitamin D3 (Cholecalciferol) 2,000 Unit Cap 2,000 Units PO DAILY l-Lysine (Lysine) 500 Mg Tab 500 Mg PO DAILY Acyclovir 200 Mg Cap 200 Mg PO 5 TIMES A DAY PRN Losartan (Losartan Potassium) 100 Mg Tab 100 Mg PO DAILY Levothyroxine (Levothyroxine Sodium) 75 Mcg Tab 75 Mcg PO DAILY Crestor (Rosuvastatin Calcium) 10 Mg Tab 10 Mg PO DAILY Review of Systems Except as stated in HPI: all other systems reviewed are Neg General / Constitutional: No: Fever, Chills Eyes: No: Blurred Vision, Photophobia HENT: Positive: Headaches Gastrointestinal: Positive: Nausea, No: Vomiting, Diarrhea Musculoskeletal: Positive: Edema (left lower extremity swelling) Neurologic: Positive: Headache, No: Weakness, Dizziness, Syncope, Focal Abnormalities, Change in Mentation, Slurred Speech, Paresthesia, Seizures Physical Exam Narrative GENERAL: Patient looks like she is hurting but she doesn't really look like she is in acute distress. SKIN: warm/dry. HEAD: Normocephalic. Atraumatic. No scalp tenderness. EYES: Pupils equal and round. No scleral icterus. No injection or drainage. Extraocular movements are intact. ENT: No nasal bleeding or discharge. Mucous membranes pink and moist. NECK: Trachea midline. Full range of motion without pain.. Supple. CARDIOVASCULAR: Regular rate and rhythm. RESPIRATORY: No accessory muscle use. Clear to auscultation. Breath sounds equal bilaterally. GASTROINTESTINAL: Abdomen soft. Nontender. Bowel sounds present. Nondistended. : MUSCULOSKELETAL: Status post recent left total hip replacement. She has some dependent edema in her left lower extremity. No significant tenderness in her leg. NEUROLOGICAL: Awake and alert. No obvious cranial nerve deficits. Motor grossly within normal limits. Normal speech. PSYCHIATRIC: Appropriate mood and affect; insight and judgment normal. Data Data Last Documented VS Vital Signs Date Time Temp Pulse Resp B/P (MAP) Pulse Ox O2 Delivery O2 Flow Rate FiO2 07/08/17 17:28 100 Room Air 07/08/17 17:28 98.4 90 18 189/87 (121) Orders Orders Complete Blood Count With Diff (07/08/17 17:25) Basic Metabolic Panel (Bmp) (07/08/17 17:25) Ct Brain W/O Iv Contrast(Rout) (07/08/17 17:25) Iv Access Insert/Monitor (07/08/17 17:25) Sodium Chloride 0.9% Flush (Ns Flush) (07/08/17 17:30) Prochlorperazine Inj (Compazine Inj) (07/08/17 17:30) Diphenhydramine Inj (Benadryl Inj) (07/08/17 17:30) Us Leg Venous Doppler (07/08/17 17:25) Labs Laboratory Tests Test 07/08/17 17:45 White Blood Count 8.3 TH/MM3 Red Blood Count 3.77 MIL/MM3 Hemoglobin 10.9 GM/DL Hematocrit 31.8 % Mean Corpuscular Volume 84.3 FL Mean Corpuscular Hemoglobin 28.8 PG Mean Corpuscular Hemoglobin Concent 34.2 % Red Cell Distribution Width 13.3 % Platelet Count 307 TH/MM3 Mean Platelet Volume 7.5 FL Neutrophils (%) (Auto) 64.0 % Lymphocytes (%) (Auto) 25.9 % Monocytes (%) (Auto) 8.3 % Eosinophils (%) (Auto) 1.2 % Basophils (%) (Auto) 0.6 % Neutrophils # (Auto) 5.3 TH/MM3 Lymphocytes # (Auto) 2.2 TH/MM3 Monocytes # (Auto) 0.7 TH/MM3 Eosinophils # (Auto) 0.1 TH/MM3 Basophils # (Auto) 0.1 TH/MM3 CBC Comment DIFF FINAL Differential Comment Blood Urea Nitrogen 10 MG/DL Creatinine 0.80 MG/DL Random Glucose 95 MG/DL Calcium Level 9.1 MG/DL Sodium Level 140 MEQ/L Potassium Level 3.3 MEQ/L Chloride Level 104 MEQ/L Carbon Dioxide Level 27.7 MEQ/L Anion Gap 8 MEQ/L Estimat Glomerular Filtration Rate 71 ML/MIN MDM Medical Decision Making Medical Screen Exam Complete: Yes Emergency Medical Condition: Yes Differential Diagnosis Differential diagnosis of headache includes but is not limited to migraine, muscle contraction headache, brain tumor, brain bleed Narrative Course This patient presents complaining with severe headache. They started when she awakened from anesthesia 4 days ago. She is also concerned about swelling in her left leg. She underwent a left total hip replacement 4 days ago. I will treat her headache with Compazine and Benadryl. CT of her head is pending. I have ordered an ultrasound of her leg. CBC & BMP Diagram 07/08/17 17:45 Calcium Level 9.1 US: There is normal compressibility of the deep venous system from the inguinal region to the proximal calf. No echogenic clot is seen in the lumen of the common femoral, femoral, popliteal, and posterior tibial veins. There is a normal response of the venous system to proximal and distal augmentation and respiration. CT of her head is negative. 1845 PM The patient has just now received her Compazine/Benadryl Her care is being turned over to the oncoming physician at 7 PM. Diagnosis Primary Impression: Headache Qualified Codes: R51 - Headache Additional Impression: Left leg swelling Condition: Stable Yudi Treviño MD Jul 08, 2017 17:38
[2017-07-08 18:15] LABS: AUTOMATED NEUTROPHIL # 5.3 TH/MM3 (1.8-7.7); BASOPHIL # 0.1 TH/MM3 (0-0.2); BASOPHIL % 0.6 % (0.0-2.0); EOSINOPHIL # 0.1 TH/MM3 (0-0.4); EOSINOPHIL % 1.2 % (0.0-4.0); HEMATOCRIT 31.8 % (35.0-46.0); HEMO FLAGS DIFF FINAL; LYMPH % 25.9 % (9.0-44.0); LYMPHOCYTE # 2.2 TH/MM3 (1.0-4.8); MEAN CELL VOLUME 84.3 FL (80.0-100.0); MEAN CORPUSCULAR HEMOGLOBIN 28.8 PG (27.0-34.0); MEAN CORPUSCULAR HGB CONC 34.2 % (32.0-36.0); MONO % 8.3 % (0.0-8.0); PLATELET COUNT 307 TH/MM3 (150-450); RED BLOOD COUNT 3.77 MIL/MM3 (4.00-5.30); RED CELL DISTRIBUTION WIDTH 13.3 % (11.6-17.2); WHITE BLOOD COUNT 8.3 TH/MM3 (4.0-11.0)
--- NOTE | 2017-07-08 18:32 | RADRPT ---
EXAM DATE/TIME: 07/08/2017 17:46 [facility] COMPARISON: No previous studies available for comparison. INDICATIONS : Left leg pain and swelling. Post operative left hip surgery four days ago. MEDICAL HISTORY : Thyroid disease. SURGICAL HISTORY : Left hip surgery. Hysterectomy. ENCOUNTER: Initial ACUITY: 4 - 6 days PAIN SCORE: 10/10 LOCATION: Left leg. TECHNIQUE: Venous ultrasound of the leg was performed from the inguinal ligament to the proximal calf. Real-cristin e, color Doppler and spectral tracing, compression and augmentation techniques were used. FINDINGS: There is normal compressibility of the deep venous system from the inguinal region to the proximal ca lf. No echogenic clot is seen in the lumen of the common femoral, femoral, popliteal, and posterior tibial veins. There is a normal response of the venous system to proximal and distal augmentation an d respiration. CONCLUSION: Normal examination. Shane Machuca MD on July 08, 2017 at 18:30 Board Certified Radiologist. This report was verified electronically.
[2017-07-08 18:36] LABS: BICARBONATE 27.7 MEQ/L (21.0-32.0); POTASSIUM 3.3 MEQ/L (3.5-5.1)
--- NOTE | 2017-07-08 18:47 | RADRPT ---
EXAM DATE/TIME: 07/08/2017 18:33 [facility] COMPARISON: No previous studies available for comparison. INDICATIONS : Cephalgia for four days. RADIATION DOSE: 29.41 CTDIvol (mGy) MEDICAL HISTORY : Hypertension. SURGICAL HISTORY : Hysterectomy. ENCOUNTER: Initial ACUITY: 4 - 6 days PAIN SCALE: 9/10 LOCATION: Bilateral head TECHNIQUE: Multiple contiguous axial images were obtained of the head. Using automated exposure control and adj ustment of the mA and/or kV according to patient size, radiation dose was kept as low as reasonably a chievable to obtain optimal diagnostic quality images. DICOM format image data is available electro nically for review and comparison. FINDINGS: CEREBRUM: The ventricles are normal for age. No evidence of midline shift, mass lesion, hemorrhage or acute in farction. No extra-axial fluid collections are seen. POSTERIOR FOSSA: The cerebellum and brainstem are intact. The 4th ventricle is midline. The cerebellopontine angle i s unremarkable. EXTRACRANIAL: The visualized portion of the orbits is intact. SKULL: The calvaria is intact. No evidence of skull fracture. CONCLUSION: Normal examination for a patient of this age. Shane Machuca MD on July 08, 2017 at 18:45 Board Certified Radiologist. This report was verified electronically.
[2017-07-08 20:25] VITALS: BP 162/72
== END 2017-07-08 20:45 | disposition home or self-care (01) ==
LOC: NEPC 16:51
DX: M19.90 Unspecified osteoarthritis, unspecified site (principal); R51 Headache; M79.89 Other specified soft tissue disorders; E07.9 Disorder of thyroid, unspecified; Z96.642 Presence of left artificial hip joint
CPT/HCPCS: 70450; 80048; 85025; 93971; 96374; 96375; 99285; J0780; J1200